=== PATIENT | female | born 1960 | race Caucasian/White ===

== ENCOUNTER 2021-12-18 12:03 | Emergency (ER) | payer OTHER, SELFPAY ==
[2021-12-18 12:17] VITALS: BP 106/83; PULSE 77; RESP 18; TEMP 37.1; O2SAT 99
--- NOTE | 2021-12-18 12:31 | ED.URI ---
HPI - URI/Sore Throat General Chief Complaint: Upper Respiratory Infection Stated Complaint: Sinus,Headache Time Seen by Provider: 12/18/21 12:30 Source: patient and RN notes reviewed Mode of arrival: ambulatory Limitations: no limitations History of Present Illness HPI Narrative: 61-year-old female presented for complaint of sinus congestion and pressure, onset yesterday. Pain to left eye, ear and jaw described as pressure. No pain to the right face. She endorses postnasal drainage for over 1 month. Has not taken anything for symptoms, took aspirin today. Also reports concern of a lesion on the tongue which she noticed yesterday. She denies cough, shortness, wheezing, chest pain, fever or chills. MD elicited complaint: cough Related Data Home Medications Medication Instructions Recorded Confirmed Unknown Vaginal Tablet 12/18/21 cholecalciferol (vitamin D3) 1,250 mcg PO WEEKLY 12/18/21 12/18/21 Allergies Allergy/AdvReac Type Severity Reaction Status Date / Time codeine Allergy Anaphylaxis Verified 12/18/21 12:30 Review of Systems Review of Systems: CONSTITUTIONAL: Denies malaise, chills, sweats, fever EYES: Denies visual changes, redness, or discharge ENT: Reports rhinorrhea, congestion, sinus pain, otalgia, sore throat CARDIOVASCULAR: Denies chest pain, palpitations, edema RESPIRATORY: Reports post nasal drainage. Denies dyspnea, cough GASTROINTESTINAL: Denies abdominal pain, nausea, vomiting, diarrhea SKIN: Denies rash or itching MUSCULOSKELETAL: Denies myalgia NEUROLOGIC: Denies headache Exam Narrative: GENERAL: well appearing, nontoxic HEAD: Normocephalic EYES: PERRLA, conjunctivae clear ENT: Mucous membranes moist. TM pearly gentile with light reflex bilaterally; no tragal tenderness. Oropharynx erythematous without lesions or exudate, no drooling, no hoarseness, no trismus, uvula midline. No tripod positioning, muffled voice, soft palate or pharyngeal wall bulging. Left posterior tongue with darkened/purple area approx 3mm x 1cm no bleeding or ulceration NECK: Supple. No lymphadenopathy CHEST: Clear to auscultation, breath sounds equal. No wheezing, rhonchi, rales, or stridor. No respiratory distress, speaks in full sentences. HEART: Regular rate and rhythm. No murmur heard. SKIN: Warm, dry, no rash. NEURO: Alert and oriented x3. PSYCH: Normal mood and affect Course Course Emergency Course: Patient is aware of diagnosis, understands and agrees to treatment plan. Anticipatory guidance given. Patient agrees to follow-up as directed and is aware of reasons to seek care at the emergency department. Portions of this record may have been created with voice recognition software Level of Care: Express Care Visit Vital Signs Vital signs: Vital Signs Temperature 98.7 F 12/18/21 12:17 Pulse Rate 77 12/18/21 12:17 Respiratory Rate 18 12/18/21 12:17 Blood Pressure 106/83 12/18/21 12:17 Pulse Oximetry 99 12/18/21 12:17 Temperature 98.7 F 12/18/21 12:17 Pulse Rate 77 12/18/21 12:17 Respiratory Rate 18 12/18/21 12:17 Blood Pressure 106/83 12/18/21 12:17 Pulse Oximetry 99 12/18/21 12:17 reviewed MDM - URI/Sore Throat Differential Diagnosis Differential diagnosis: Likely upper respiratory infection, sinusitis and viral infection Discharge Plan Discharge Clinical Impression: Tongue lesion Upper respiratory infection Qualifiers: URI type: unspecified URI Qualified Code(s): J06.9 - Acute upper respiratory infection, unspecified Patient Disposition: Home, Self-Care Condition: Stable Instructions: Antibiotic Form, Sinusitis (ED) Additional Instructions: Recommend antihistamine such as Claritin/Zyrtec/La during the day and you can add Flonase spray for more severe sinus pressure/congestion Tylenol 1000mg every 8 hours as needed for pain/fever Hot steamy showers in the morning to help open up your sinuses Increase fluid intake Gargle with warm salt water
== END 2021-12-18 12:40 | disposition home or self-care (01) ==
PROVIDERS: Emergency Provider Nurse Practitioner Family
DX: K14.8 Other diseases of tongue (principal); J06.9 Acute upper respiratory infection, unspecified
CPT/HCPCS: 99203; G0463